=== PATIENT | female | born 1980 | race African-American/Black ===

== ENCOUNTER 2016-05-29 22:42 | Emergency (ER) | payer SELFPAY ==
[~2016-05-29] VITALS: Ht 175.3 cm; Wt 56.7 kg
[~2016-05-29 22:42] MED LIST: IBUP-1610 PO
--- NOTE | 2016-05-29 22:48 | NUR ---
PT WALKED INTO ER REQUESTING FOR TEST AND C/O ABDOMINAL BLOATING... PT IS ALERT, ORIENTED X 4, NO RESP DISTRESS NOTED OR REPORTED UPON ASSESSMENT... MD AT BEDSIDE...
[2016-05-29 23:40] LABS: *BILIRUBIN,URIN NEGATIVE (NEGATIVE); *BLOOD, URINE Trace-intact (NEGATIVE); *CLARITY,URINE CLOUDY (CLEAR); *COLOR,URINE LIGHT YELLOW (YELLOW); *KETONES,URINE NEGATIVE (NEGATIVE); *PROTEIN,URINE NEGATIVE (NEGATIVE); LEUKOCYTE ESTERASE ,URINE 1+ (NEGATIVE); NITRITE, URINE NEGATIVE (NEGATIVE); PH,URINE 7.5 (5.0-8.0); UGLUCOSE NEGATIVE (NEGATIVE)
[2016-05-29 23:45] LABS: RBC,URINE 0-3 /HPF (0-3)
[2016-05-29 23:46] LABS: *URINE HCG, QUAL NEGATIVE (NEGATIVE); BACTERIA,URINE MODERATE /HPF (NONE SEEN); SQUAMOUS EPITHELIAL CELL,UR MANY /HPF (NONE SEEN); URINE AMORPHOUS URATE MANY /HPF
--- NOTE | 2016-05-30 00:37 | NUR ---
Patient discharged to home in stable conditon. Written and verbal after care instructions given. Patient verbalizes understanding of instructions. pt walked out of ER unassisted with belongings at side...
[2016-05-30 00:38] VITALS: BP 131/94
[2016-06-01 09:32] LABS: *TRIC.VAG. NAA Negative (Negative)
[2016-06-01 18:06] LABS: *CHLAMYDIA NAA Negative (Negative); *GC NAA Negative (Negative)
== END 2016-05-30 00:40 | disposition home or self-care (01) ==
LOC: ER 22:42
DX: N91.2 Amenorrhea, unspecified (principal); F10.20 Alcohol dependence, uncomplicated
CPT/HCPCS: 81001; 84703; 87491; 99284; A4663

== ENCOUNTER 2016-06-16 01:44 | Emergency (ER) | payer SELFPAY ==
[~2016-06-16] VITALS: Ht 175.3 cm; Wt 56.7 kg
[2016-06-16] MEDS ORDERED: CEFTRIAXONE 1 G VIAL IM ONE (03:30)
[2016-06-16 03:34] LABS: *BILIRUBIN,URIN NEGATIVE (NEGATIVE); *BLOOD, URINE 1+ (NEGATIVE); *CLARITY,URINE SLIGHTLY CLOUDY (CLEAR); *COLOR,URINE YELLOW (YELLOW); *KETONES,URINE NEGATIVE (NEGATIVE); *PROTEIN,URINE TRACE (NEGATIVE); LEUKOCYTE ESTERASE ,URINE NEGATIVE (NEGATIVE); NITRITE, URINE NEGATIVE (NEGATIVE); UGLUCOSE NEGATIVE (NEGATIVE)
[2016-06-16] MEDS ORDERED: LIDOCAINE HCL 1% 20 ML VIAL ONE (03:40)
[2016-06-16] MEDS ORDERED: CEFTRIAXONE 1 G VIAL ONE (03:40)
[2016-06-16 03:43] LABS: BACTERIA,URINE MANY /HPF (NONE SEEN); SQUAMOUS EPITHELIAL CELL,UR MANY /HPF (NONE SEEN)
[2016-06-16 03:44] LABS: MUCUS,URINE MANY /LPF (0-FEW)
[2016-06-16 03:45] LABS: *URINE HCG, QUAL NEGATIVE (NEGATIVE)
--- NOTE | 2016-06-16 04:03 | NUR ---
Patient discharged to home in stable conditon. Written and verbal after care instructions given. Patient verbalizes understanding of instructions.
== END 2016-06-16 04:04 | disposition home or self-care (01) ==
LOC: ER 01:46
DX: N39.0 Urinary tract infection, site not specified (principal); F10.20 Alcohol dependence, uncomplicated
CPT/HCPCS: 81001; 84703; 87086; 96372; 99284; A4663; J0696; J3490

== ENCOUNTER 2016-10-25 00:22 | Emergency (ER) | payer SELFPAY ==
[~2016-10-25] VITALS: Ht 175.3 cm; Wt 61.2 kg
--- NOTE | 2016-10-25 01:10 | NUR ---
Ambulated to BR to void then to room 2B. Patient AAO, c/o pain and discomfort to lower abdominal area scale 7/10.
[2016-10-25 01:29] LABS: *BILIRUBIN,URIN NEGATIVE (NEGATIVE); *BLOOD, URINE NEGATIVE (NEGATIVE); *CLARITY,URINE CLEAR (CLEAR); *COLOR,URINE YELLOW (YELLOW); *KETONES,URINE NEGATIVE (NEGATIVE); *PROTEIN,URINE NEGATIVE (NEGATIVE); LEUKOCYTE ESTERASE ,URINE NEGATIVE (NEGATIVE); NITRITE, URINE NEGATIVE (NEGATIVE); PH,URINE 6.5 (5.0-8.0); UGLUCOSE NEGATIVE (NEGATIVE)
[2016-10-25 01:32] LABS: BACTERIA,URINE NONE SEEN /HPF (NONE SEEN); RBC,URINE 0-3 /HPF (0-3); SQUAMOUS EPITHELIAL CELL,UR NONE SEEN /HPF (NONE SEEN); WBC,URINE 0-3 /HPF (0-3)
[2016-10-25 01:35] LABS: *URINE HCG, QUAL NEGATIVE (NEGATIVE)
--- NOTE | 2016-10-25 01:50 | NUR ---
Seen and evaluated by Dr. Rosas.
[2016-10-25] MEDS ORDERED: CEFTRIAXONE 500 MG VIAL IM ONE (02:30)
--- NOTE | 2016-10-25 02:36 | NUR ---
Patient discharged to home in stable conditon. Written and verbal after care instructions given. Patient verbalizes understanding of instructions.
[2016-10-25] MEDS ORDERED: CEFTRIAXONE 500 MG VIAL ONE (02:41)
[2016-10-25] MEDS ORDERED: LIDOCAINE HCL 1% 20 ML VIAL ONE (02:41)
[2016-10-27 07:06] LABS: *GC NAA Negative (Negative); *TRIC.VAG. NAA Negative (Negative)
== END 2016-10-25 02:37 | disposition home or self-care (01) ==
LOC: ER 00:25
DX: N39.0 Urinary tract infection, site not specified (principal)
CPT/HCPCS: 84703; 87086; 87491; A4663; J0696; J3490

== ENCOUNTER 2016-11-04 23:15 | Emergency (ER) | payer SELFPAY ==
--- NOTE | 2016-11-04 23:45 | NUR ---
CALLED FOR PT NO ANSWER LWBT
== END 2016-11-04 23:45 | disposition left against medical advice (07) ==
LOC: ER 23:18
DX: R10.9 Unspecified abdominal pain (principal); Z53.21 Procedure and treatment not carried out due to patient leaving prior to being seen by health care provider

== ENCOUNTER 2016-11-24 02:23 | Emergency (ER) | payer SELFPAY ==
[~2016-11-24] VITALS: Ht 175.3 cm; Wt 56.7 kg
--- NOTE | 2016-11-24 04:25 | NUR ---
Patient discharged to home in stable conditon. Written and verbal after care instructions given. Patient verbalizes understanding of instructions.
== END 2016-11-24 04:27 | disposition home or self-care (01) ==
LOC: ER 02:28
DX: S93.601A Unspecified sprain of right foot, initial encounter (principal); W20.8XXA Other cause of strike by thrown, projected or falling object, initial encounter; Y93.89 Activity, other specified; Y92.9 Unspecified place or not applicable; Y99.9 Unspecified external cause status
CPT/HCPCS: 73630; A4663

== ENCOUNTER 2016-11-26 00:56 | Emergency (ER) | payer SELFPAY ==
[~2016-11-26] VITALS: Ht 175.3 cm; Wt 56.7 kg
--- NOTE | 2016-11-26 01:57 | NUR ---
Pt is received from the off going nurse with report off nausea, feeling funny in the lower Abd but want to be check for and prossible STD. Her care continue as awaits lab results.
[2016-11-26 03:21] LABS: *BILIRUBIN,URIN NEGATIVE (NEGATIVE); *BLOOD, URINE 1+ (NEGATIVE); *COLOR,URINE YELLOW (YELLOW); *KETONES,URINE NEGATIVE (NEGATIVE); *PROTEIN,URINE 1+ (NEGATIVE); *UROBILINOGEN,URINE 0.2 E.U./dl (NORMAL); LEUKOCYTE ESTERASE ,URINE TRACE (NEGATIVE); NITRITE, URINE NEGATIVE (NEGATIVE); PH,URINE 5.5 (5.0-8.0); UGLUCOSE NEGATIVE (NEGATIVE)
--- NOTE | 2016-11-26 03:38 | NUR ---
Pt remain alert, responsive with no s/s off distress. Her care continue while monitor.
[2016-11-26 03:59] LABS: *CLARITY,URINE HAZY (CLEAR)
[2016-11-26 04:02] LABS: BACTERIA,URINE MODERATE /HPF (NONE SEEN); MUCUS,URINE MANY /LPF (0-FEW); SQUAMOUS EPITHELIAL CELL,UR MODERATE /HPF (NONE SEEN)
--- NOTE | 2016-11-26 05:04 | NUR ---
Pt remain alert, responsive as she is assisted as needed as her care continue while awaits test results.
[2016-11-26 05:27] VITALS: BP 102/72
--- NOTE | 2016-11-26 05:33 | NUR ---
Patient discharged to home in stable conditon. Written and verbal after care instructions given. Patient verbalizes understanding of instructions. All belongings with patient. Ambulated from ER with stable gait. patient will be driven home by [facility].
== END 2016-11-26 05:37 | disposition home or self-care (01) ==
LOC: ER 00:58
DX: N39.0 Urinary tract infection, site not specified (principal)
CPT/HCPCS: A4663; J0696

== ENCOUNTER 2016-12-24 02:10 | Emergency (ER) | payer SELFPAY ==
[~2016-12-24] VITALS: Ht 175.3 cm; Wt 56.7 kg
[2016-12-24 03:37] LABS: *BILIRUBIN,URIN NEGATIVE (NEGATIVE); *BLOOD, URINE NEGATIVE (NEGATIVE); *CLARITY,URINE CLEAR (CLEAR); *COLOR,URINE YELLOW (YELLOW); *KETONES,URINE NEGATIVE (NEGATIVE); *PROTEIN,URINE NEGATIVE (NEGATIVE); *UROBILINOGEN,URINE 0.2 E.U./dl (NORMAL); LEUKOCYTE ESTERASE ,URINE 1+ (NEGATIVE); NITRITE, URINE NEGATIVE (NEGATIVE); UGLUCOSE NEGATIVE (NEGATIVE)
[2016-12-24 03:53] LABS: *URINE HCG, QUAL NEGATIVE (NEGATIVE)
[2016-12-24 03:58] LABS: BACTERIA,URINE FEW /HPF (NONE SEEN); SQUAMOUS EPITHELIAL CELL,UR FEW /HPF (NONE SEEN)
[2016-12-24] MEDS ORDERED: CEFTRIAXONE 500 MG VIAL IM ONE (04:15)
[2016-12-24] MEDS ORDERED: AZITHROMYCIN 250 MG TABLET PO ONE (04:15)
[2016-12-24] MEDS ORDERED: AZITHROMYCIN 250 MG TABLET ONE (04:36)
[2016-12-24] MEDS ORDERED: LIDOCAINE HCL 1% 20 ML VIAL ONE (04:36)
[2016-12-24] MEDS ORDERED: CEFTRIAXONE 500 MG VIAL ONE (04:36)
[2016-12-24 04:58] VITALS: BP 108/74
--- NOTE | 2016-12-24 04:58 | NUR ---
Patient discharged to home in stable conditon. Written and verbal after care instructions given. Patient verbalizes understanding of instructions.
[2016-12-26 18:08] LABS: *TRIC.VAG. NAA Negative (Negative)
[2016-12-27 09:28] LABS: *GC NAA Negative (Negative)
== END 2016-12-24 05:00 | disposition home or self-care (01) ==
LOC: ER 02:12
DX: Z20.2 Contact with and (suspected) exposure to infections with a predominantly sexual mode of transmission (principal); N30.00 Acute cystitis without hematuria; N83.209 Unspecified ovarian cyst, unspecified side
CPT/HCPCS: 81001; 84703; 87086; 87491; 96372; 99284; A4663; J0696; J3490; Q0144

== ENCOUNTER 2017-01-24 18:42 | Emergency (ER) | payer SELFPAY ==
[~2017-01-24] VITALS: Ht 175.3 cm; Wt 56.7 kg
--- NOTE | 2017-01-24 19:42 | NUR ---
Patient discharged to home in stable conditon. Written and verbal after care instructions given. Patient verbalizes understanding of instructions.
[2017-01-24] MEDS ORDERED: predniSONE 20 MG TABLET PO ONE (19:45)
[2017-01-24] MEDS ORDERED: AMOXICILLIN-CLAVUL 875-125MG TABLET PO ONE (19:45)
[2017-01-24] MEDS ORDERED: AMOXICILLIN-CLAVUL 875-125MG TABLET ONE (19:52)
[2017-01-24] MEDS ORDERED: predniSONE 20 MG TABLET ONE (19:52)
== END 2017-01-24 19:43 | disposition home or self-care (01) ==
LOC: ER 18:42
DX: J01.90 Acute sinusitis, unspecified (principal); N83.209 Unspecified ovarian cyst, unspecified side
CPT/HCPCS: 99283; A4663; J7512

== ENCOUNTER 2017-02-19 23:15 | Emergency (ER) | payer SELFPAY ==
[~2017-02-19] VITALS: Ht 175.3 cm; Wt 56.7 kg
[~2017-02-19 23:15] MED LIST changes: -IBUP-1610 PO; +IBUP-1627 PO
--- NOTE | 2017-02-19 23:49 | NUR ---
Patient discharged to home in stable conditon. Written and verbal after care instructions given. Patient verbalizes understanding of instructions.
== END 2017-02-19 23:51 | disposition home or self-care (01) ==
LOC: ER 23:17
DX: J02.9 Acute pharyngitis, unspecified (principal); J20.9 Acute bronchitis, unspecified
CPT/HCPCS: 99283; A4663

== ENCOUNTER 2017-02-21 23:39 | Emergency (ER) | payer SELFPAY ==
[~2017-02-21] VITALS: Ht 175.3 cm; Wt 56.7 kg
--- NOTE | 2017-02-22 03:16 | NUR ---
Pt is received alert, responsive as she came in c/o off Earache and Sore Throat. Her care continue as awaits MD orders.
--- NOTE | 2017-02-22 03:55 | NUR ---
Pt remain alert, remain alert, responsive as she is been medicated with 200mg po off Tessalon Perles but refused Troradol 30mg IM as is arron awared. Pt care continue.
[2017-02-22] MEDS: BENZONATATE 100 MG CAPSULE PO ONE (04:05)
[2017-02-22] MEDS: KETOROLAC TROMETHAMINE 30 MG INJ IM ONE (04:05)
--- NOTE | 2017-02-22 04:07 | NUR ---
Pt is noted alert, responsive as she is been discharged to home with discharged instructions with Perscriptions given as she is stable .
[2017-02-22] MEDS ORDERED: KETOROLAC TROMETHAMINE 30 MG INJ ONE (04:11)
[2017-02-22] MEDS ORDERED: BENZONATATE 100 MG CAPSULE ONE (04:11)
[2017-02-22 04:13] VITALS: BP 90/52
== END 2017-02-22 04:16 | disposition home or self-care (01) ==
LOC: ER 23:41
DX: B34.9 Viral infection, unspecified (principal)
CPT/HCPCS: 99283; A4663 ×2; J1885

== ENCOUNTER 2017-03-05 23:10 | Emergency (ER) | payer SELFPAY ==
[~2017-03-05] VITALS: Ht 175.3 cm; Wt 56.7 kg
[2017-03-05] MEDS ORDERED: AZITHROMYCIN 250 MG TABLET PO ONE (23:45)
[2017-03-05] MEDS ORDERED: CEFTRIAXONE 500 MG VIAL IM ONE (23:45)
[2017-03-05] MEDS ORDERED: ONDANSETRON ODT 4 MG TAB.RAPDIS SL ONE (23:45)
[2017-03-05 23:48] LABS: *URINE HCG, QUAL NEGATIVE (NEGATIVE)
[2017-03-05 23:49] LABS: *BILIRUBIN,URIN NEGATIVE (NEGATIVE); *BLOOD, URINE 1+ (NEGATIVE); *CLARITY,URINE CLEAR (CLEAR); *COLOR,URINE YELLOW (YELLOW); *KETONES,URINE NEGATIVE (NEGATIVE); *PROTEIN,URINE NEGATIVE (NEGATIVE); LEUKOCYTE ESTERASE ,URINE NEGATIVE (NEGATIVE); NITRITE, URINE NEGATIVE (NEGATIVE); PH,URINE 5.5 (5.0-8.0); UGLUCOSE NEGATIVE (NEGATIVE)
--- NOTE | 2017-03-05 23:54 | NUR ---
Patient discharged to home in stable conditon. Written and verbal after care instructions given. Patient verbalizes understanding of instructions. Ambulated from ER with stable gait. All belongings with patient.
[2017-03-05 23:55] VITALS: BP 110/69
[2017-03-05 23:57] LABS: BACTERIA,URINE NONE SEEN /HPF (NONE SEEN); SQUAMOUS EPITHELIAL CELL,UR MODERATE /HPF (NONE SEEN); WBC,URINE 0-3 /HPF (0-3)
[2017-03-05] MEDS ORDERED: CEFAZOLIN 1 G VIAL ONE (23:59)
[2017-03-05] MEDS ORDERED: AZITHROMYCIN 250 MG TABLET ONE (23:59)
[2017-03-05] MEDS ORDERED: ONDANSETRON ODT 4 MG TAB.RAPDIS ONE (23:59)
[2017-03-08 08:06] LABS: *GC NAA Negative (Negative); *TRIC.VAG. NAA Negative (Negative)
== END 2017-03-05 23:55 | disposition home or self-care (01) ==
LOC: ER 23:11
DX: N39.0 Urinary tract infection, site not specified (principal); B96.89 Other specified bacterial agents as the cause of diseases classified elsewhere
CPT/HCPCS: 84703; 87491; A4663; J0690; Q0144; Q0162

== ENCOUNTER 2017-04-12 22:23 | Emergency (ER) | payer SELFPAY ==
[~2017-04-12] VITALS: Ht 175.3 cm; Wt 56.7 kg
[2017-04-12] MEDS: CEFTRIAXONE 500 MG VIAL IM ONE (23:10)
[2017-04-12] MEDS ORDERED: CEFTRIAXONE 500 MG VIAL ONE (23:17)
--- NOTE | 2017-04-12 23:19 | NUR ---
Patient discharged to home in stable conditon. Written and verbal after care instructions given. Patient verbalizes understanding of instructions.
[2017-04-12] MEDS ORDERED: LIDOCAINE HCL 1% 20 ML VIAL ONE (23:20)
[2017-04-12 23:21] VITALS: BP 105/75
== END 2017-04-12 23:18 | disposition home or self-care (01) ==
LOC: ER 22:25
DX: O98.311 Other infections with a predominantly sexual mode of transmission complicating pregnancy, first trimester (principal); A64 Unspecified sexually transmitted disease; N83.209 Unspecified ovarian cyst, unspecified side
CPT/HCPCS: A4663; J0696; J3490

== ENCOUNTER 2017-04-30 10:14 | Emergency (ER) | payer SELFPAY ==
[~2017-04-30] VITALS: Ht 175.3 cm; Wt 56.7 kg
[2017-04-30 11:07] LABS: *BILIRUBIN,URIN NEGATIVE (NEGATIVE); *BLOOD, URINE 1+ (NEGATIVE); *CLARITY,URINE CLEAR (CLEAR); *COLOR,URINE YELLOW (YELLOW); *KETONES,URINE NEGATIVE (NEGATIVE); *PROTEIN,URINE TRACE (NEGATIVE); *UROBILINOGEN,URINE 0.2 E.U./dl (NORMAL); LEUKOCYTE ESTERASE ,URINE NEGATIVE (NEGATIVE); NITRITE, URINE NEGATIVE (NEGATIVE); UGLUCOSE NEGATIVE (NEGATIVE)
[2017-04-30] MEDS ORDERED: CEFTRIAXONE 1 G in IV DEXTROSE 5% 50 ML IV ONE (11:15)
[2017-04-30] MEDS ORDERED: AZITHROMYCIN 250 MG TABLET PO ONE (11:15)
[2017-04-30] MEDS ORDERED: KETOROLAC TROMETHAMINE 15 MG INJ IV ONE (11:15)
[2017-04-30] MEDS ORDERED: ONDANSETRON 4 MG/2 ML VIAL IV ONE (11:15)
[2017-04-30 11:17] LABS: BACTERIA,URINE FEW /HPF (NONE SEEN); MUCUS,URINE MODERATE /LPF (0-FEW); SQUAMOUS EPITHELIAL CELL,UR MODERATE /HPF (NONE SEEN); WBC,URINE 0-3 /HPF (0-3)
[2017-04-30 11:18] LABS: *URINE HCG, QUAL POSITIVE (NEGATIVE)
--- NOTE | 2017-04-30 11:20 | NUR ---
Pt refused HL, aware.
[2017-04-30] MEDS ORDERED: AZITHROMYCIN 250 MG TABLET ONE (11:28)
[2017-04-30] MEDS ORDERED: ONDANSETRON ODT 4 MG TAB.RAPDIS ONE (11:28)
[2017-04-30] MEDS ORDERED: CEFTRIAXONE 500 MG VIAL ONE (11:29)
[2017-04-30] MEDS ORDERED: LIDOCAINE HCL 1% 20 ML VIAL ONE (11:29)
[2017-04-30] MEDS ORDERED: ONDANSETRON ODT 4 MG TAB.RAPDIS SL ONE (11:30)
[2017-04-30] MEDS ORDERED: CEFTRIAXONE 500 MG VIAL IM ONE (11:30)
[2017-04-30 11:36] LABS: BASOPHILS % (AUTO) 0.4 % (0.0-2.0); EOSINOPHILS % (AUTO) 0.6 % (0.0-7.0); HEMATOCRIT 39.5 % (31.2-41.9); HEMOGLOBIN 13.1 g/dL (10.9-14.3); LYMPHOCYTES # (AUTO) 1.9 K/uL (20.0-40.0); LYMPHOCYTES % (AUTO) 38.4 % (20.5-51.5); MEAN CORPUSCULAR HGB CONC 33 g/dL (32.3-35.6); MEAN CORPUSCULAR VOLUME 90.5 fL (75.5-95.3); MONOCYTES # (AUTO) 0.3 K/uL (2.0-10.0); MONOCYTES % (AUTO) 6.6 % (0.0-11.0); NEUTROPHILS # (AUTO) 2.6 K/uL (1.8-8.9); PLATELET COUNT (AUTO) 210 K/uL (179-408); RED BLOOD CELL COUNT(AUTO) 4.36 MIL/uL (3.63-4.92); WHITE BLOOD COUNT (AUTO) 4.8 K/uL (3.8-11.8)
[2017-04-30 11:45] LABS: CREATININE 0.7 mg/dL (0.6-1.3)
[2017-04-30 12:03] LABS: BILIRUBIN,DIRECT 0.2 mg/dL (0.0-0.2); BILIRUBIN,TOTAL 1.3 mg/dL (0.2-1.0); TOTAL PROTEIN, SERUM 7.6 g/dL (6.4-8.2)
--- NOTE | 2017-04-30 13:22 | NUR ---
Patient is resting comfortably in bed with eyes closed, NAD noted.
--- NOTE | 2017-04-30 13:35 | NUR ---
DR SNYDER AT BEDSIDE MADE PATIENT AWARE OF TEST RESULTS. WILL BE DC HOME.
--- NOTE | 2017-04-30 13:39 | NUR ---
Patient discharged to home in stable conditon. Written and verbal after care instructions given. Patient verbalizes understanding of instructions.
[2017-04-30 13:43] VITALS: BP 115/71
== END 2017-04-30 13:45 | disposition home or self-care (01) ==
LOC: ER 10:14
DX: O03.9 Complete or unspecified spontaneous abortion without complication (principal); Z79.1 Long term (current) use of non-steroidal anti-inflammatories (NSAID); Z3A.00 Weeks of gestation of pregnancy not specified
CPT/HCPCS: 36415; 76856; 80048; 80076; 81001; 83690; 84702; 84703; 85025; 86850; 86900; 86901; 96372; 99285; A4663; J0696; J3490 ×2; Q0144; Q0162

== ENCOUNTER 2017-05-02 12:34 | Emergency (ER) | payer SELFPAY ==
[~2017-05-02] VITALS: Ht 175.3 cm; Wt 56.7 kg
--- NOTE | 2017-05-02 13:50 | NUR ---
PATIENT WAS SEEN BY MD FOR LABS. DC AND FOLLOW UP INSRUCTIONS GIVEN AND EXPLAINED TO PATIENT.
== END 2017-05-02 14:30 | disposition home or self-care (01) ==
LOC: ER 12:34
DX: O03.9 Complete or unspecified spontaneous abortion without complication (principal); Z79.1 Long term (current) use of non-steroidal anti-inflammatories (NSAID); Z3A.00 Weeks of gestation of pregnancy not specified
CPT/HCPCS: 36415; 84702; 99283; A4663

== ENCOUNTER 2017-05-12 06:47 | Emergency (ER) | payer SELFPAY ==
[~2017-05-12] VITALS: Ht 172.7 cm; Wt 54.4 kg
--- NOTE | 2017-05-12 07:23 | NUR ---
URINE SENT,BLOOD DRAWN, PT AWAITING [facility]ANS[facility].
[2017-05-12 07:33] LABS: *BLOOD, URINE NEGATIVE (NEGATIVE); *CLARITY,URINE CLEAR (CLEAR); *COLOR,URINE YELLOW (YELLOW); *KETONES,URINE NEGATIVE (NEGATIVE); *PROTEIN,URINE TRACE (NEGATIVE); LEUKOCYTE ESTERASE ,URINE TRACE (NEGATIVE); NITRITE, URINE NEGATIVE (NEGATIVE); PH,URINE 5.5 (5.0-8.0); UGLUCOSE NEGATIVE (NEGATIVE)
[2017-05-12 07:35] LABS: BASOPHILS % (AUTO) 0.3 % (0.0-2.0); EOSINOPHILS % (AUTO) 0.6 % (0.0-7.0); HEMATOCRIT 43.2 % (31.2-41.9); HEMOGLOBIN 14.4 g/dL (10.9-14.3); LYMPHOCYTES # (AUTO) 2.4 K/uL (20.0-40.0); LYMPHOCYTES % (AUTO) 41.3 % (20.5-51.5); MEAN CORPUSCULAR HGB CONC 33 g/dL (32.3-35.6); MEAN CORPUSCULAR VOLUME 90.1 fL (75.5-95.3); MONOCYTES # (AUTO) 0.3 K/uL (2.0-10.0); MONOCYTES % (AUTO) 5.4 % (0.0-11.0); NEUTROPHILS # (AUTO) 3.1 K/uL (1.8-8.9); NEUTROPHILS % (AUTO) 52.4 % (38.5-71.5); PLATELET COUNT (AUTO) 232 K/uL (179-408); WHITE BLOOD COUNT (AUTO) 5.8 K/uL (3.8-11.8)
[2017-05-12 07:36] LABS: *BILIRUBIN,URIN 1+ (NEGATIVE)
[2017-05-12 07:37] LABS: *URINE HCG, QUAL NEGATIVE (NEGATIVE)
--- NOTE | 2017-05-12 07:39 | NUR ---
FRANS[facility] [place] AT BEDSIDE
[2017-05-12 07:40] LABS: CREATININE 0.8 mg/dL (0.6-1.3); POTASSIUM 3.4 mmol/L (3.5-5.1)
[2017-05-12 07:46] LABS: BILIRUBIN,TOTAL 1.2 mg/dL (0.2-1.0); TOTAL PROTEIN, SERUM 7.9 g/dL (6.4-8.2)
[2017-05-12 07:52] LABS: RBC,URINE 0-3 /HPF (0-3)
[2017-05-12 07:53] LABS: BACTERIA,URINE FEW /HPF (NONE SEEN); SQUAMOUS EPITHELIAL CELL,UR MANY /HPF (NONE SEEN)
[2017-05-12] MEDS ORDERED: POTASSIUM CHLORIDE 20 MEQ TAB.PRT.SR ONE (08:45)
[2017-05-12] MEDS ORDERED: POTASSIUM CHLORIDE 20 MEQ TAB.PRT.SR PO ONE (08:45)
--- NOTE | 2017-05-12 08:54 | NUR ---
MSE COMPLETED, ALL MEDS ADMIN, PT D/C'D HOME, ACI/RX X1 GIVEN. PT AMBULATED W/O DIFF, TOOK ALL BELONGINGS.
[2017-05-12 09:05] VITALS: BP 106/62
== END 2017-05-12 08:47 | disposition home or self-care (01) ==
LOC: ER 06:47
DX: N39.0 Urinary tract infection, site not specified (principal); E87.6 Hypokalemia; Z79.1 Long term (current) use of non-steroidal anti-inflammatories (NSAID)
CPT/HCPCS: 36415; 70030-TC; 84703; 85025; A4663

== ENCOUNTER 2017-07-11 23:04 | Emergency (ER) | payer SELFPAY ==
--- NOTE | 2017-07-11 23:32 | NUR ---
Patient came up to sales ledger clerk's window and states " I don't want to be seen anymore. I come back in the morning if I need to."
--- NOTE | 2017-07-11 23:33 | NUR ---
Patient left without being seen or triaged
== END 2017-07-11 23:35 | disposition left against medical advice (07) ==
LOC: ER 23:06
DX: Z53.21 Procedure and treatment not carried out due to patient leaving prior to being seen by health care provider (principal)

== ENCOUNTER 2017-07-17 04:50 | Emergency (ER) | payer SELFPAY ==
[~2017-07-17] VITALS: Ht 172.7 cm; Wt 54.4 kg
--- NOTE | 2017-07-17 05:17 | NUR ---
PT C/O DYSURIA, GENERALIZED MALAISE, ABD PAIN, AND COUGH FOR THE LAST FEW DAYS, AND STATES SHE THINKS SHE HAS A FEVER. VSS UPON ARRIVAL, AND PT IS AFEBRILE AT THIS TIME.
--- NOTE | 2017-07-17 05:20 | NUR ---
URINE SPECIMEN OBTAINED AND SENT TO LAB.
--- NOTE | 2017-07-17 05:28 | NUR ---
DR KATY BROWN MD AT BEDSIDE FOR MSE.
[2017-07-17 05:37] LABS: *BILIRUBIN,URIN NEGATIVE (NEGATIVE); *BLOOD, URINE Trace-intact (NEGATIVE); *CLARITY,URINE SLIGHTLY CLOUDY (CLEAR); *COLOR,URINE YELLOW (YELLOW); *KETONES,URINE NEGATIVE (NEGATIVE); *PROTEIN,URINE NEGATIVE (NEGATIVE); *UROBILINOGEN,URINE 0.2 E.U./dl (NORMAL); LEUKOCYTE ESTERASE ,URINE TRACE (NEGATIVE); NITRITE, URINE NEGATIVE (NEGATIVE); PH,URINE 5.5 (5.0-8.0); UGLUCOSE NEGATIVE (NEGATIVE)
[2017-07-17 05:47] LABS: *URINE HCG, QUAL NEGATIVE (NEGATIVE); BACTERIA,URINE NONE SEEN /HPF (NONE SEEN); MUCUS,URINE MANY /LPF (0-FEW); SQUAMOUS EPITHELIAL CELL,UR FEW /HPF (NONE SEEN)
--- NOTE | 2017-07-17 05:54 | NUR ---
Patient discharged to home in stable conditon. Written and verbal after care instructions given. Patient verbalizes understanding of instructions. Pt ambulated from ER w/ no noted distress. Pt took all personal belongings.
[2017-07-17 05:56] VITALS: BP 107/74
== END 2017-07-17 05:56 | disposition home or self-care (01) ==
LOC: ER 04:50
DX: N39.0 Urinary tract infection, site not specified (principal); N83.209 Unspecified ovarian cyst, unspecified side
CPT/HCPCS: 81001; 84703; 87086; 99284; A4663

== ENCOUNTER 2017-07-20 09:24 | Emergency (ER) | payer SELFPAY ==
[~2017-07-20] VITALS: Ht 172.7 cm; Wt 54.4 kg
--- NOTE | 2017-07-20 09:40 | NUR ---
Dr Yepez at the bedside.
[2017-07-20 09:53] LABS: *BILIRUBIN,URIN NEGATIVE (NEGATIVE); *BLOOD, URINE NEGATIVE (NEGATIVE); *COLOR,URINE YELLOW (YELLOW); *KETONES,URINE NEGATIVE (NEGATIVE); *PROTEIN,URINE TRACE (NEGATIVE); *UROBILINOGEN,URINE 0.2 E.U./dl (NORMAL); LEUKOCYTE ESTERASE ,URINE 1+ (NEGATIVE); NITRITE, URINE NEGATIVE (NEGATIVE); UGLUCOSE NEGATIVE (NEGATIVE)
[2017-07-20 09:54] LABS: *CLARITY,URINE SLIGHTLY HAZY (CLEAR)
[2017-07-20 10:04] LABS: BACTERIA,URINE FEW /HPF (NONE SEEN); SQUAMOUS EPITHELIAL CELL,UR FEW /HPF (NONE SEEN)
[2017-07-20 10:05] LABS: MUCUS,URINE MANY /LPF (0-FEW)
[2017-07-20] MEDS ORDERED: CIPROFLOXACIN HCL 250 MG TABLET PO ONE (10:15)
--- NOTE | 2017-07-20 10:25 | NUR ---
Patient discharged to home in stable conditon. Written and verbal after care instructions given. Patient verbalizes understanding of instructions.
[2017-07-20 10:26] VITALS: BP 106/67
== END 2017-07-20 10:27 | disposition home or self-care (01) ==
LOC: ER 09:25
DX: N39.0 Urinary tract infection, site not specified (principal); G43.909 Migraine, unspecified, not intractable, without status migrainosus
CPT/HCPCS: A4663

== ENCOUNTER 2017-08-11 09:14 | Emergency (ER) | payer SELFPAY ==
[~2017-08-11] VITALS: Ht 172.7 cm; Wt 54.4 kg
[2017-08-11] MEDS ORDERED: LET TOPICAL SOLUTION 8 ML UDC ONE (09:30)
[2017-08-11] MEDS ORDERED: LET TOPICAL SOLUTION 8 ML UDC TP ONE (09:30)
[2017-08-11] MEDS ORDERED: NEOMY/BACITRA/POLYMYXIN B OINT UD PACKET TP ONE ×2 (09:37→10:00)
[2017-08-11] MEDS ORDERED: CEFTRIAXONE 500 MG VIAL IM ONE (10:00)
[2017-08-11] MEDS ORDERED: CEFTRIAXONE 500 MG VIAL ONE (10:13)
[2017-08-11] MEDS: TDAP DIPH,PERTUSS,TET VAC/PF 0.5 ML DISP.SYRIN IM ONE ×2 (10:14→10:28)
[2017-08-11] MEDS ORDERED: LIDOCAINE HCL 1% 20 ML VIAL ONE (10:14)
[2017-08-11] MEDS ORDERED: TDAP DIPH,PERTUSS,TET VAC/PF 0.5 ML DISP.SYRIN IM ONE (10:25)
--- NOTE | 2017-08-11 10:28 | NUR ---
Patient discharged to home in stable conditon. Written and verbal after care instructions given. Patient verbalizes understanding of instructions.PT WALKS IN STEADY GAIT. NO REACTION TO [facility]EPH[facility].
== END 2017-08-11 10:33 | disposition home or self-care (01) ==
LOC: ER 09:14
DX: S80.812A Abrasion, left lower leg, initial encounter (principal); L08.9 Local infection of the skin and subcutaneous tissue, unspecified; Z79.1 Long term (current) use of non-steroidal anti-inflammatories (NSAID); X58.XXXA Exposure to other specified factors, initial encounter; Y93.89 Activity, other specified; Y92.89 Other specified places as the place of occurrence of the external cause; Y99.8 Other external cause status
CPT/HCPCS: 90471; 90715; 96372; 99284; A4663; J0696; J3490

== ENCOUNTER 2017-08-14 10:50 | Emergency (ER) | payer SELFPAY ==
[~2017-08-14] VITALS: Ht 167.6 cm; Wt 54.4 kg
--- NOTE | 2017-08-14 11:02 | NUR ---
Patient discharged to home in stable conditon & steady gait. Written and verbal after care instructions given to patient by MD himself. Patient verbalizes understanding of instructions.
== END 2017-08-14 11:04 | disposition home or self-care (01) ==
LOC: ER 10:50
DX: S81.812D Laceration without foreign body, left lower leg, subsequent encounter (principal); Z48.02 Encounter for removal of sutures; Z79.1 Long term (current) use of non-steroidal anti-inflammatories (NSAID); W26.8XXD Contact with other sharp object(s), not elsewhere classified, subsequent encounter
CPT/HCPCS: 99281; A4663

== ENCOUNTER 2017-08-19 15:13 | Emergency (ER) | payer SELFPAY ==
--- NOTE | 2017-08-19 15:23 | NUR ---
PT LWBT, STATED SHE FELT BETTER
== END 2017-08-19 15:25 | disposition left against medical advice (07) ==
LOC: ER 15:15
DX: Z53.21 Procedure and treatment not carried out due to patient leaving prior to being seen by health care provider (principal)

== ENCOUNTER 2017-08-21 09:50 | Emergency (ER) | payer SELFPAY ==
[~2017-08-21] VITALS: Ht 167.6 cm; Wt 54.4 kg
--- NOTE | 2017-08-21 10:22 | NUR ---
Patient sen by Dr Rosas for c/o abdominal/suprapubic pain.
[2017-08-21] MEDS ORDERED: AZITHROMYCIN 250 MG TABLET PO ONE (10:30)
[2017-08-21] MEDS ORDERED: CEFTRIAXONE 1 G in IV DEXTROSE 5% 50 ML IV ONE (10:30)
[2017-08-21] MEDS ORDERED: CEFTRIAXONE 1 G VIAL ONE (10:37)
[2017-08-21] MEDS ORDERED: AZITHROMYCIN 250 MG TABLET ONE (10:48)
--- NOTE | 2017-08-21 11:57 | NUR ---
IV DC'd, catheter tip intact, pressure applied, dressing applied. DC, Rx and follow up instructions given and explained to patient who states she understands all instructions.
== END 2017-08-21 12:01 | disposition home or self-care (01) ==
LOC: ER 09:50
DX: K13.0 Diseases of lips (principal); Z79.1 Long term (current) use of non-steroidal anti-inflammatories (NSAID)
CPT/HCPCS: 87086; 96365; 99284; A4663; J0696; J3490; Q0144

== ENCOUNTER 2017-09-22 08:27 | Emergency (ER) | payer SELFPAY ==
[~2017-09-22] VITALS: Ht 167.6 cm; Wt 54.4 kg
--- NOTE | 2017-09-22 09:03 | NUR ---
MSE COMPLETED, ACI/RX X2 GIVEN. PT AMBULATED W/O DIFF/TOOK ALL BELONGINGS.
[2017-09-22 09:06] VITALS: BP 111/77
== END 2017-09-22 09:06 | disposition home or self-care (01) ==
LOC: ER 08:27
DX: L25.9 Unspecified contact dermatitis, unspecified cause (principal); H10.9 Unspecified conjunctivitis; Z79.1 Long term (current) use of non-steroidal anti-inflammatories (NSAID)
CPT/HCPCS: A4663

== ENCOUNTER 2017-09-23 23:17 | Emergency (ER) | payer SELFPAY ==
[~2017-09-23] VITALS: Ht 175.3 cm; Wt 56.7 kg
--- NOTE | 2017-09-24 00:17 | NUR ---
DR ANAIS BROWN MD AT BEDSIDE FOR MSE
[2017-09-24] MEDS ORDERED: SULFACETAMIDE SOD 10% OPHT DR 15 ML BOTTLE ONE (00:28)
--- NOTE | 2017-09-24 00:34 | NUR ---
Patient discharged to home in stable conditon. Written and verbal after care instructions given. Patient verbalizes understanding of instructions. pt ambulated from ER w/ steady gait, no distress noted. Pt took all personal belongings.
[2017-09-24 00:35] VITALS: BP 108/82
== END 2017-09-24 00:36 | disposition home or self-care (01) ==
LOC: ER 23:19
DX: H10.213 Acute toxic conjunctivitis, bilateral (principal); Z79.1 Long term (current) use of non-steroidal anti-inflammatories (NSAID)
CPT/HCPCS: A4663

== ENCOUNTER 2017-10-15 22:46 | Emergency (ER) | payer SELFPAY ==
[~2017-10-15] VITALS: Ht 167.6 cm; Wt 54.4 kg
--- NOTE | 2017-10-15 23:20 | NUR ---
Dr. Flores at bedside for MSE.
[2017-10-15] MEDS ORDERED: CEFTRIAXONE 500 MG VIAL IM ONE (23:30)
[2017-10-15] MEDS ORDERED: AZITHROMYCIN 250 MG TABLET PO ONE (23:30)
[2017-10-15] MEDS ORDERED: AZITHROMYCIN 250 MG TABLET ONE (23:39)
[2017-10-15] MEDS ORDERED: CEFTRIAXONE 1 G VIAL ONE (23:40)
[2017-10-15] MEDS ORDERED: LIDOCAINE 1%-EPI 1:100,000 20 ML VIAL ONE (23:40)
[2017-10-15 23:41] LABS: *BILIRUBIN,URIN NEGATIVE (NEGATIVE); *BLOOD, URINE 2+ (NEGATIVE); *CLARITY,URINE CLEAR (CLEAR); *COLOR,URINE YELLOW (YELLOW); *KETONES,URINE NEGATIVE (NEGATIVE); *PROTEIN,URINE NEGATIVE (NEGATIVE); *UROBILINOGEN,URINE 0.2 E.U./dl (NORMAL); LEUKOCYTE ESTERASE ,URINE 2+ (NEGATIVE); NITRITE, URINE NEGATIVE (NEGATIVE); PH,URINE 5.5 (5.0-8.0); UGLUCOSE TRACE (NEGATIVE)
[2017-10-15 23:50] LABS: *URINE HCG, QUAL NEGATIVE (NEGATIVE); BACTERIA,URINE FEW /HPF (NONE SEEN); SQUAMOUS EPITHELIAL CELL,UR MODERATE /HPF (NONE SEEN)
--- NOTE | 2017-10-16 00:14 | NUR ---
Patient discharged to home in stable conditon. Written and verbal after care instructions given. Patient verbalizes understanding of instructions. Pt ambulated out of ER with steady gait, no acute signs of distress, VSS, all belongings taken.
[2017-10-16 00:18] VITALS: BP 100/65
[2017-10-18 07:06] LABS: *GC NAA Negative (Negative); *TRIC.VAG. NAA Negative (Negative)
== END 2017-10-16 00:19 | disposition home or self-care (01) ==
LOC: ER 22:50
DX: N39.0 Urinary tract infection, site not specified (principal)
CPT/HCPCS: 81001; 84703; 87077; 87086; 87491; 96372; 99284; A4663; J0696; J3490; Q0144

== ENCOUNTER 2017-10-29 01:01 | Emergency (ER) | payer SELFPAY ==
[~2017-10-29] VITALS: Ht 167.6 cm; Wt 54.4 kg
--- NOTE | 2017-10-29 01:30 | NUR ---
Patient discharged to home in stable conditon. Written and verbal after care instructions given. Patient verbalizes understanding of instructions.
[2017-10-29 01:31] VITALS: BP 104/62
== END 2017-10-29 01:32 | disposition home or self-care (01) ==
LOC: ER 01:03
DX: N39.0 Urinary tract infection, site not specified (principal)
CPT/HCPCS: A4663

== ENCOUNTER 2017-12-11 17:08 | Emergency (ER) | payer SELFPAY ==
[~2017-12-11] VITALS: Ht 177.8 cm; Wt 74.8 kg
[2017-12-11] MEDS ORDERED: DEXAMETHASONE SOD PHOSPHATE 4 MG INJ IM ONE (19:15)
[2017-12-11] MEDS ORDERED: CEFTRIAXONE 1 G VIAL IM ONE (19:15)
[2017-12-11] MEDS ORDERED: CEFTRIAXONE 1 G VIAL ONE (19:18)
[2017-12-11] MEDS ORDERED: LIDOCAINE HCL 1% 20 ML VIAL ONE (19:18)
[2017-12-11] MEDS ORDERED: DEXAMETHASONE SOD PHOSPHATE 10 MG INJ ONE (19:18)
--- NOTE | 2017-12-11 19:23 | NUR ---
Patient discharged to home in stable conditon. Written and verbal after care instructions given. Patient verbalizes understanding of instructions. ALL BELONGINGS W/ PT. PT SELF-AMBULATED WITHOUT DIFFICULTY.
[2017-12-11 19:25] VITALS: BP 125/70
== END 2017-12-11 19:28 | disposition home or self-care (01) ==
LOC: ER 17:10
DX: J02.9 Acute pharyngitis, unspecified (principal)
CPT/HCPCS: 96372 ×2; 99284; A4663; J0696; J1100; J3490

== ENCOUNTER 2018-01-01 18:38 | Emergency (ER) | payer SELFPAY ==
[~2018-01-01] VITALS: Ht 175.3 cm; Wt 74.8 kg
--- NOTE | 2018-01-01 19:09 | NUR ---
RECEIVED SHIFT REPORT FROM LUIS PLATT. RECEIVED PT IN BED, VSS. PT PRESENTS W/ MULTIPLE COMPLAINTS: BILATERAL EARACHE, SORE THROAT, MIGRAINE. PT DENIES C/P, SOB, N/V/D, DIZZINESS, HEADACHE.
[2018-01-01] MEDS ORDERED: ONDANSETRON ODT 4 MG TAB.RAPDIS SL ONE (19:30)
[2018-01-01] MEDS ORDERED: ONDANSETRON ODT 4 MG TAB.RAPDIS ONE (19:31)
[2018-01-01 20:07] LABS: *BILIRUBIN,URIN NEGATIVE (NEGATIVE); *BLOOD, URINE Trace-lysed (NEGATIVE); *CLARITY,URINE CLEAR (CLEAR); *COLOR,URINE YELLOW (YELLOW); *KETONES,URINE 2+ (NEGATIVE); *PROTEIN,URINE TRACE (NEGATIVE); *UROBILINOGEN,URINE 0.2 E.U./dl (NORMAL); LEUKOCYTE ESTERASE ,URINE TRACE (NEGATIVE); NITRITE, URINE NEGATIVE (NEGATIVE); UGLUCOSE NEGATIVE (NEGATIVE)
[2018-01-01 20:10] LABS: *URINE HCG, QUAL NEGATIVE (NEGATIVE)
[2018-01-01 20:19] LABS: BACTERIA,URINE RARE /HPF (NONE SEEN); SQUAMOUS EPITHELIAL CELL,UR FEW /HPF (NONE SEEN)
--- NOTE | 2018-01-01 20:57 | NUR ---
Patient discharged to home in stable conditon. Written and verbal after care instructions given. Patient verbalizes understanding of instructions. PT D/C W/ PRECRIPTIONS. ALL BELONGINGS W/ PT. PT SELF-AMBULATED WITHOUT DIFFICULTY.
[2018-01-01 20:58] VITALS: BP 115/70
== END 2018-01-01 20:59 | disposition home or self-care (01) ==
LOC: ER 18:41
DX: B97.89 Other viral agents as the cause of diseases classified elsewhere (principal); H92.02 Otalgia, left ear; R11.0 Nausea; R51 Headache; J02.9 Acute pharyngitis, unspecified
CPT/HCPCS: 36415; 84703; 86403; 87070; A4663; Q0162

== ENCOUNTER 2018-01-06 19:22 | Emergency (ER) | payer SELFPAY ==
--- NOTE | 2018-01-06 20:04 | NUR ---
PATIENT LEFT WITHOUT BEING TRIAGED.
--- NOTE | 2018-01-06 20:05 | NUR ---
PATIENT WAS NOT TRIAGED AND LEFT WITHOUT BEING SEEN.
== END 2018-01-06 19:50 | disposition left against medical advice (07) ==
LOC: ER 19:25
DX: Z53.21 Procedure and treatment not carried out due to patient leaving prior to being seen by health care provider (principal)

== ENCOUNTER 2018-01-07 15:18 | Emergency (ER) | payer SELFPAY ==
[~2018-01-07] VITALS: Ht 175.3 cm; Wt 29.5 kg
--- NOTE | 2018-01-07 15:56 | NUR ---
Patient discharged to home in stable conditon. Written and verbal after care instructions given. Patient verbalizes understanding of instructions.
== END 2018-01-07 15:57 | disposition home or self-care (01) ==
LOC: ER 15:21
DX: J32.9 Chronic sinusitis, unspecified (principal); N39.0 Urinary tract infection, site not specified
CPT/HCPCS: A4663

== ENCOUNTER 2018-01-29 15:54 | Emergency (ER) | payer SELFPAY ==
[~2018-01-29] VITALS: Ht 175.3 cm; Wt 68.0 kg
[2018-01-29] MEDS ORDERED: DEXAMETHASONE SOD PHOSPHATE 4 MG INJ IM ONE (16:15)
[2018-01-29] MEDS ORDERED: PENICILLIN G BENZATHINE 2.4 MMU/4 ML DISP.SYRIN IM ONE ×2 (16:15→16:18)
[2018-01-29] MEDS ORDERED: DEXAMETHASONE SOD PHOSPHATE 10 MG INJ ONE (16:18)
--- NOTE | 2018-01-29 16:28 | NUR ---
MEDS ADMIN. PT D/C'D HOME. ACI GIVEN.
[2018-01-29 16:29] VITALS: BP 111/62
== END 2018-01-29 16:30 | disposition home or self-care (01) ==
LOC: ER 15:56
DX: J02.9 Acute pharyngitis, unspecified (principal); Z79.1 Long term (current) use of non-steroidal anti-inflammatories (NSAID)
CPT/HCPCS: 96372 ×2; 99283; J1100; A4663

== ENCOUNTER 2018-03-04 22:20 | Emergency (ER) | payer SELFPAY ==
[~2018-03-04] VITALS: Ht 175.3 cm; Wt 56.7 kg
--- NOTE | 2018-03-04 22:53 | NUR ---
Pt. ambulated into ED w/ c/o urinary retention, A/Ox4, fina MANZO/CP/PALMER/F/C/N/V/DMD at bedside for MSE, will continue to monitor, Addendum: 03/04/18 at 2255 by BKDAGOBERTO abd. S/R/NT/ND, no blood in urine noted, no pelvic/flank pain reported,
[2018-03-04 22:57] LABS: *BILIRUBIN,URIN NEGATIVE (NEGATIVE); *BLOOD, URINE NEGATIVE (NEGATIVE); *CLARITY,URINE CLEAR (CLEAR); *COLOR,URINE YELLOW (YELLOW); *KETONES,URINE NEGATIVE (NEGATIVE); *PROTEIN,URINE NEGATIVE (NEGATIVE); *UROBILINOGEN,URINE 0.2 E.U./dl (NORMAL); LEUKOCYTE ESTERASE ,URINE NEGATIVE (NEGATIVE); NITRITE, URINE NEGATIVE (NEGATIVE); UGLUCOSE NEGATIVE (NEGATIVE)
[2018-03-04 23:09] LABS: *URINE HCG, QUAL NEGATIVE (NEGATIVE); BACTERIA,URINE MODERATE /HPF (NONE SEEN); SQUAMOUS EPITHELIAL CELL,UR MODERATE /HPF (NONE SEEN)
[2018-03-04] MEDS ORDERED: CEFTRIAXONE 1 G VIAL IM ONE (23:15)
[2018-03-04] MEDS ORDERED: CEFTRIAXONE 1 G VIAL ONE (23:23)
--- NOTE | 2018-03-04 23:34 | NUR ---
Patient discharged to home in stable conditon. Written and verbal after care instructions given. Patient verbalizes understanding of instructions. Pt. d/c w/ prescription per MD orders, d/c papers signed, all belongings w/ pt., left in private vehicle, no acue distress, ambulated out of ED w/ steady gait, no acute distress,
== END 2018-03-04 23:36 | disposition home or self-care (01) ==
LOC: ER 22:21
DX: N39.0 Urinary tract infection, site not specified (principal); Z79.1 Long term (current) use of non-steroidal anti-inflammatories (NSAID)
CPT/HCPCS: 81001; 84703; 96372; 99283; J0696; A4663

== ENCOUNTER 2018-03-09 19:03 | Emergency (ER) | payer SELFPAY ==
[~2018-03-09] VITALS: Ht 175.3 cm; Wt 56.7 kg
[2018-03-09 19:46] LABS: *BILIRUBIN,URIN NEGATIVE (NEGATIVE); *BLOOD, URINE Trace-intact (NEGATIVE); *CLARITY,URINE SLIGHTLY CLOUDY (CLEAR); *COLOR,URINE YELLOW (YELLOW); *KETONES,URINE NEGATIVE (NEGATIVE); *UROBILINOGEN,URINE 0.2 E.U./dl (NORMAL); LEUKOCYTE ESTERASE ,URINE NEGATIVE (NEGATIVE); NITRITE, URINE NEGATIVE (NEGATIVE); UGLUCOSE NEGATIVE (NEGATIVE)
[2018-03-09 19:47] LABS: *URINE HCG, QUAL NEGATIVE (NEGATIVE)
[2018-03-09 19:52] LABS: SQUAMOUS EPITHELIAL CELL,UR MODERATE /HPF (NONE SEEN); WBC,URINE 0-3 /HPF (0-3)
[2018-03-09 19:53] LABS: MUCUS,URINE MANY /LPF (0-FEW); URINE AMORPHOUS PHOSPHATES MODERATE /HPF
--- NOTE | 2018-03-09 20:15 | NUR ---
Patient discharged to home in stable conditon. Written and verbal after care instructions given. Patient verbalizes understanding of instructions.
== END 2018-03-09 20:16 | disposition home or self-care (01) ==
LOC: ER 19:06
DX: R30.0 Dysuria (principal); Z79.1 Long term (current) use of non-steroidal anti-inflammatories (NSAID)
CPT/HCPCS: 84703; A4663

== ENCOUNTER 2018-04-06 22:40 | Emergency (ER) | payer SELFPAY ==
[~2018-04-06] VITALS: Ht 175.3 cm; Wt 56.7 kg
--- NOTE | 2018-04-06 23:05 | NUR ---
Pt ambulated in ER with stable gait with the c/o sore throat x 3 days and lower abdominal pain x 4 days. Pt denies N/V/D.
[2018-04-07] MEDS: CEFTRIAXONE 500 MG VIAL IM ONE (00:36)
[2018-04-07] MEDS: AZITHROMYCIN 250 MG TABLET PO ONE (00:37)
[2018-04-07] MEDS: ONDANSETRON ODT 4 MG TAB.RAPDIS SL ONE (00:37)
--- NOTE | 2018-04-07 01:28 | NUR ---
Spoke with Jose Luis from Lab regarding Strep screen, states that he is working on it at this time.
--- NOTE | 2018-04-07 02:52 | NUR ---
Patient discharged to home in stable conditon. Written and verbal after care instructions given. Patient verbalizes understanding of instructions. Patient ambulated out of ER with stable gait.
[2018-04-07 02:53] VITALS: BP 114/82
== END 2018-04-07 02:54 | disposition home or self-care (01) ==
LOC: ER 22:42
DX: R30.0 Dysuria (principal); J02.9 Acute pharyngitis, unspecified; Z79.1 Long term (current) use of non-steroidal anti-inflammatories (NSAID)
CPT/HCPCS: 36415; 86403; 87070; 87077; A4663; J0696; J3490; Q0144; Q0162

== ENCOUNTER 2018-05-03 21:11 | Emergency (ER) | payer SELFPAY ==
[~2018-05-03] VITALS: Ht 175.3 cm; Wt 56.7 kg
--- NOTE | 2018-05-03 21:38 | NUR ---
Pt provided urine sample, sent to lab.
--- NOTE | 2018-05-03 22:07 | NUR ---
Dr. Villalobos at bedside for MSE.
[2018-05-03 22:08] LABS: *BILIRUBIN,URIN NEGATIVE (NEGATIVE); *BLOOD, URINE NEGATIVE (NEGATIVE); *CLARITY,URINE CLEAR (CLEAR); *COLOR,URINE YELLOW (YELLOW); *KETONES,URINE NEGATIVE (NEGATIVE); LEUKOCYTE ESTERASE ,URINE NEGATIVE (NEGATIVE); NITRITE, URINE NEGATIVE (NEGATIVE); UGLUCOSE NEGATIVE (NEGATIVE)
[2018-05-03 22:11] LABS: *URINE HCG, QUAL NEGATIVE (NEGATIVE)
[2018-05-03] MEDS ORDERED: METRONIDAZOLE 500 MG TABLET PO ONE (22:15)
[2018-05-03] MEDS ORDERED: AZITHROMYCIN 250 MG TABLET PO ONE (22:15)
[2018-05-03] MEDS ORDERED: CEFTRIAXONE 1 G VIAL IM ONE (22:15)
[2018-05-03 22:17] LABS: MUCUS,URINE MANY /LPF (0-FEW)
[2018-05-03] MEDS ORDERED: CEFTRIAXONE 1 G VIAL ONE (22:19)
[2018-05-03] MEDS ORDERED: LIDOCAINE 1%-EPI 1:100,000 20 ML VIAL ONE (22:21)
[2018-05-03] MEDS ORDERED: METRONIDAZOLE 500 MG TABLET ONE (22:21)
[2018-05-03] MEDS ORDERED: AZITHROMYCIN 250 MG TABLET ONE (22:22)
--- NOTE | 2018-05-03 22:30 | NUR ---
Patient discharged to home in stable conditon. Written and verbal after care instructions given. Patient verbalizes understanding of instructions. Patient ambulated out of ER with steady gait, no acute signs of distress, VSS, all belongings taken.
[2018-05-03 22:31] VITALS: BP 107/65
== END 2018-05-03 22:31 | disposition home or self-care (01) ==
LOC: ER 21:14
DX: Z20.2 Contact with and (suspected) exposure to infections with a predominantly sexual mode of transmission (principal); R10.9 Unspecified abdominal pain; Z79.1 Long term (current) use of non-steroidal anti-inflammatories (NSAID)
CPT/HCPCS: 81001; 84703; 96372; 99283; J0696; J3490; A4663; Q0144

== ENCOUNTER 2018-05-25 15:03 | Emergency (ER) | payer SELFPAY ==
[~2018-05-25] VITALS: Ht 175.3 cm; Wt 56.7 kg
--- NOTE | 2018-05-25 15:26 | NUR ---
KEVIN TODD AT BEDSIDE FOR MSE.
--- NOTE | 2018-05-25 15:27 | NUR ---
Juan Carlos fitzgerald in ED - 05/25/18 at 1545 by RUPALI Shiv camejo pt electrical scooter back pt so has the keys in his hand
[2018-05-25] MEDS ORDERED: CEFTRIAXONE 1 G VIAL IM ONE (15:30)
[2018-05-25] MEDS ORDERED: LIDOCAINE HCL 1% 20 ML VIAL ONE (15:44)
[2018-05-25] MEDS ORDERED: CEFTRIAXONE 1 G VIAL ONE (15:44)
--- NOTE | 2018-05-25 15:45 | NUR ---
Patient discharged to home in stable conditon. Written and verbal after care instructions given. Patient verbalizes understanding of instructions. Stressed f/u with pmd.
== END 2018-05-25 15:46 | disposition home or self-care (01) ==
LOC: ER 15:06
DX: J02.9 Acute pharyngitis, unspecified (principal); Z79.1 Long term (current) use of non-steroidal anti-inflammatories (NSAID)
CPT/HCPCS: 96372; 99283; J0696; J3490; A4663

== ENCOUNTER 2018-06-04 15:20 | Emergency (ER) | payer SELFPAY ==
[~2018-06-04] VITALS: Ht 175.3 cm; Wt 56.7 kg
[2018-06-04 16:05] LABS: *BILIRUBIN,URIN NEGATIVE (NEGATIVE); *CLARITY,URINE SLIGHTLY CLOUDY (CLEAR); *COLOR,URINE YELLOW (YELLOW); *KETONES,URINE NEGATIVE (NEGATIVE); *UROBILINOGEN,URINE 0.2 E.U./dl (NORMAL); LEUKOCYTE ESTERASE ,URINE NEGATIVE (NEGATIVE); NITRITE, URINE NEGATIVE (NEGATIVE); PH,URINE 5.5 (5.0-8.0); UGLUCOSE NEGATIVE (NEGATIVE)
[2018-06-04 16:07] LABS: *BLOOD, URINE TRACE (NEGATIVE)
[2018-06-04 16:08] LABS: *URINE HCG, QUAL NEGATIVE (NEGATIVE)
[2018-06-04 16:15] LABS: BACTERIA,URINE MANY /HPF (NONE SEEN); SQUAMOUS EPITHELIAL CELL,UR MODERATE /HPF (NONE SEEN)
--- NOTE | 2018-06-04 16:15 | NUR ---
Juan Carlos fitzgerald in EDM - 06/04/18 at 1626 by BELLA Pt back from CT. Caregiver is at bedside and translating for the pt (Micronesian), pt states she is pain free at this time.
[2018-06-04] MEDS ORDERED: CEFTRIAXONE 1 G VIAL IM ONE (16:45)
--- NOTE | 2018-06-04 16:52 | NUR ---
Patient discharged to home in stable conditon. Written and verbal after care instructions given. Patient verbalizes understanding of instructions.PT WALKS IN STEADY GAIT.
== END 2018-06-04 16:54 | disposition home or self-care (01) ==
LOC: ER 15:23
DX: N39.0 Urinary tract infection, site not specified (principal); Z79.1 Long term (current) use of non-steroidal anti-inflammatories (NSAID)
CPT/HCPCS: 81001; 84703; 96372; 99283; J0696; J3490; A4663

== ENCOUNTER → 2018-06-23 | Emergency (ER) | payer SELFPAY ==
[~2018-06-23] VITALS: Ht 175.3 cm; Wt 56.7 kg
--- NOTE | 2018-06-23 16:30 | NUR ---
Dr. Flores at the bedside for MSE.
--- NOTE | 2018-06-23 16:52 | NUR ---
Patient discharged to home in stable conditon. Written and verbal after care instructions given. Patient verbalizes understanding of instructions.
== END | disposition home or self-care (01) ==
LOC: ER 16:29
DX: L73.1 Pseudofolliculitis barbae (principal); Z79.1 Long term (current) use of non-steroidal anti-inflammatories (NSAID)
CPT/HCPCS: A4663

== ENCOUNTER 2018-06-26 13:38 | Emergency (ER) | payer SELFPAY ==
[~2018-06-26] VITALS: Ht 175.3 cm; Wt 56.7 kg
[2018-06-26] MEDS ORDERED: CEphaleXIN 500 MG CAPSULE PO ONE (14:00)
[2018-06-26] MEDS ORDERED: CEphaleXIN 500 MG CAPSULE ONE (14:00)
--- NOTE | 2018-06-26 14:00 | NUR ---
PT WAS EVALUATED BY DR QUESADA. PT WAS D/C'd TO HOME. D/C INSTRUCTIONS GIVEN TO THE PT.
[2018-06-26 14:04] VITALS: BP 129/75
== END 2018-06-26 14:05 | disposition home or self-care (01) ==
LOC: ER 13:38
DX: L03.114 Cellulitis of left upper limb (principal); Z79.1 Long term (current) use of non-steroidal anti-inflammatories (NSAID)
CPT/HCPCS: A4663

== ENCOUNTER 2018-08-01 21:34 | Emergency (ER) | payer SELFPAY ==
[~2018-08-01] VITALS: Ht 175.3 cm; Wt 56.7 kg
[2018-08-01 22:20] LABS: *BILIRUBIN,URIN NEGATIVE (NEGATIVE); *BLOOD, URINE 1+ (NEGATIVE); *COLOR,URINE YELLOW (YELLOW); *KETONES,URINE 1+ (NEGATIVE); *UROBILINOGEN,URINE 0.2 E.U./dl (NORMAL); LEUKOCYTE ESTERASE ,URINE TRACE (NEGATIVE); NITRITE, URINE NEGATIVE (NEGATIVE); UGLUCOSE NEGATIVE (NEGATIVE)
[2018-08-01 22:26] LABS: *CLARITY,URINE HAZY (CLEAR)
[2018-08-01 22:31] LABS: BACTERIA,URINE MODERATE /HPF (NONE SEEN); MUCUS,URINE MODERATE /LPF (0-FEW); SQUAMOUS EPITHELIAL CELL,UR FEW /HPF (NONE SEEN)
[2018-08-01] MEDS ORDERED: CEFTRIAXONE 1 G VIAL IM ONE (23:00)
[2018-08-01] MEDS ORDERED: CEFTRIAXONE 1 G VIAL ONE (23:11)
[2018-08-01] MEDS ORDERED: LIDOCAINE HCL 1% 20 ML VIAL ONE (23:11)
--- NOTE | 2018-08-01 23:17 | NUR ---
Patient discharged to home in stable conditon. Written and verbal after care instructions given. Patient verbalizes understanding of instructions. WALKED OUT OF ER WITH NO DISTRESS NOTED
[2018-08-01 23:18] VITALS: BP 118/66
== END 2018-08-01 23:19 | disposition home or self-care (01) ==
LOC: ER 21:37
DX: N39.0 Urinary tract infection, site not specified (principal); B96.89 Other specified bacterial agents as the cause of diseases classified elsewhere; Z79.1 Long term (current) use of non-steroidal anti-inflammatories (NSAID)
CPT/HCPCS: 81000; 81001; 87086; 96372; 99283; J0696; J3490; A4663

== ENCOUNTER 2018-08-22 16:11 | Emergency (ER) | payer SELFPAY ==
[~2018-08-22] VITALS: Ht 175.3 cm; Wt 56.7 kg
--- NOTE | 2018-08-22 16:33 | NUR ---
KEVIN TODD AT BEDSIDE FOR MSE.
[2018-08-22] MEDS ORDERED: ONDANSETRON ODT 4 MG TAB.RAPDIS ONE (16:44)
[2018-08-22] MEDS ORDERED: IBUPROFEN 600 MG TABLET ONE (16:44)
[2018-08-22] MEDS ORDERED: ONDANSETRON ODT 4 MG TAB.RAPDIS SL ONE (16:45)
[2018-08-22] MEDS ORDERED: IBUPROFEN 600 MG TABLET PO ONE (16:45)
[2018-08-22] MEDS ORDERED: LORAZEPAM 2 MG/1 ML VIAL ONE (16:52)
--- NOTE | 2018-08-22 17:09 | NUR ---
Patient discharged to home in stable conditon. Written and verbal after care instructions given. Patient verbalizes understanding of instructions. ALL BELONGINGS W/ PT. PT SELF-AMBUALTED W/O DIFFICULTY.
[2018-08-22 17:10] VITALS: BP 106/82
== END 2018-08-22 17:12 | disposition home or self-care (01) ==
LOC: ER 16:11
DX: R51 Headache (principal); R53.83 Other fatigue; R11.0 Nausea; Z79.1 Long term (current) use of non-steroidal anti-inflammatories (NSAID)
CPT/HCPCS: A4663; J2060; Q0162

== ENCOUNTER 2018-09-11 18:54 | Emergency (ER) | payer SELFPAY ==
[~2018-09-11] VITALS: Ht 175.3 cm; Wt 56.7 kg
--- NOTE | 2018-09-11 19:50 | NUR ---
Patient walked into ER c/o abdominal pain x4 days without N/V and diarrhea. Patient also c/o itchy rash on right side x1 week. Patient states rash possible due byron spider bites.No SOB noted.
--- NOTE | 2018-09-11 20:04 | NUR ---
Dr Garcia into eval patient
--- NOTE | 2018-09-11 20:18 | NUR ---
Patient refused to have blood drawn and ct scan stating "I just want anything done now."
--- NOTE | 2018-09-11 20:22 | NUR ---
Patient does not wish to proceed with medical care recommended by Dr. linares ). Patient given information related to possible complications, up to and including , which could occur as a result of leaving the hospital at this time. Patient verbalizes understanding of risks involved due to leaving against medical advice. Patient has signed AMA form.
== END 2018-09-11 20:29 | disposition left against medical advice (07) ==
LOC: ER 18:56
DX: L50.9 Urticaria, unspecified (principal); R10.84 Generalized abdominal pain; Z79.1 Long term (current) use of non-steroidal anti-inflammatories (NSAID)
CPT/HCPCS: A4663

== ENCOUNTER 2018-11-04 19:10 | Emergency (ER) | payer SELFPAY ==
[~2018-11-04] VITALS: Ht 175.3 cm; Wt 56.7 kg
--- NOTE | 2018-11-04 19:20 | NUR ---
Patient ambulated with stable gait. A/Ox4. Patient came for c/o bilateral UE rashes.
[2018-11-04] MEDS ORDERED: HYDROCORTISONE 1% CREAM 30 GM TUBE TP ONE ×2 (19:30→19:39)
[2018-11-04] MEDS ORDERED: diphenhydrAMINE 25 MG CAP PO ONE ×2 (19:30→19:39)
--- NOTE | 2018-11-04 19:48 | NUR ---
Patient discharged to home in stable conditon. Written and verbal after care instructions given. Patient verbalizes understanding of instructions. Patient ambulated with stable gait.
[2018-11-04 20:29] VITALS: BP 110/72
== END 2018-11-04 19:48 | disposition home or self-care (01) ==
LOC: ER 19:10
DX: L25.9 Unspecified contact dermatitis, unspecified cause (principal); L74.0 Miliaria rubra; Z79.1 Long term (current) use of non-steroidal anti-inflammatories (NSAID)
CPT/HCPCS: 99283; Q0163; A4663

== ENCOUNTER 2018-12-12 21:05 | Emergency (ER) | payer SELFPAY ==
[~2018-12-12] VITALS: Ht 175.3 cm; Wt 56.7 kg
--- NOTE | 2018-12-12 21:22 | NUR ---
patient came from home. Chief complaint of urinary discomfort and frequency. Patients denies any pain at this time. patient has provided urine sample and sample has been given to lab.
[2018-12-12 21:32] LABS: *BILIRUBIN,URIN NEGATIVE (NEGATIVE); *BLOOD, URINE 1+ (NEGATIVE); *COLOR,URINE YELLOW (YELLOW); *KETONES,URINE NEGATIVE (NEGATIVE); *UROBILINOGEN,URINE 0.2 E.U./dl (NORMAL); LEUKOCYTE ESTERASE ,URINE TRACE (NEGATIVE); NITRITE, URINE NEGATIVE (NEGATIVE); UGLUCOSE NEGATIVE (NEGATIVE)
[2018-12-12 21:33] LABS: *URINE HCG, QUAL NEGATIVE (NEGATIVE)
[2018-12-12 21:36] LABS: *CLARITY,URINE SLIGHTLY HAZY (CLEAR)
[2018-12-12 21:38] LABS: BACTERIA,URINE MODERATE /HPF (NONE SEEN); MUCUS,URINE MODERATE /LPF (0-FEW); SQUAMOUS EPITHELIAL CELL,UR MODERATE /HPF (NONE SEEN)
[2018-12-12] MEDS ORDERED: DOXYCYCLINE HYCLATE 100 MG TABLET PO ONE (22:00)
[2018-12-12] MEDS ORDERED: NITROFURANTOIN/NITROFURAN MAC 100 MG CAPSULE PO ONE (22:00)
[2018-12-12] MEDS ORDERED: PHENAZOPYRIDINE HCL 100 MG TABLET PO ONE (22:00)
[2018-12-12] MEDS ORDERED: PHENAZOPYRIDINE HCL 100 MG TABLET ONE (22:01)
[2018-12-12] MEDS ORDERED: NITROFURANTOIN/NITROFURAN MAC 100 MG CAPSULE ONE (22:01)
[2018-12-12] MEDS ORDERED: DOXYCYCLINE HYCLATE 100 MG TABLET ONE (22:02)
--- NOTE | 2018-12-12 22:04 | NUR ---
Patient discharged to home in stable conditon. Written and verbal after care instructions given. Patient verbalizes understanding of instructions. Patient self ambulatory with steady gait. Exit care package and personal belongings taken home with the patient at discharge. Patient in stable condition, VSS.
[2018-12-12 22:06] VITALS: BP 107/81
== END 2018-12-12 22:07 | disposition home or self-care (01) ==
LOC: ER 21:08
DX: R30.0 Dysuria (principal); R35.0 Frequency of micturition; Z79.1 Long term (current) use of non-steroidal anti-inflammatories (NSAID)
CPT/HCPCS: 84703; 87086; A4663

== ENCOUNTER 2019-01-18 20:12 | Emergency (ER) | payer SELFPAY ==
[~2019-01-18] VITALS: Ht 175.3 cm; Wt 56.7 kg
[2019-01-18 22:08] LABS: *URINE HCG, QUAL NEGATIVE (NEGATIVE)
[2019-01-18 22:10] LABS: *BILIRUBIN,URIN NEGATIVE (NEGATIVE); *BLOOD, URINE TRACE (NEGATIVE); *CLARITY,URINE CLOUDY (CLEAR); *COLOR,URINE YELLOW (YELLOW); *KETONES,URINE NEGATIVE (NEGATIVE); *UROBILINOGEN,URINE 0.2 E.U./dl (NORMAL); PH,URINE 7.5 (5.0-8.0); UGLUCOSE NEGATIVE (NEGATIVE)
[2019-01-18 22:11] LABS: LEUKOCYTE ESTERASE ,URINE NEGATIVE (NEGATIVE); NITRITE, URINE NEGATIVE (NEGATIVE)
[2019-01-18 22:12] LABS: SQUAMOUS EPITHELIAL CELL,UR MODERATE /HPF (NONE SEEN); URINE AMORPHOUS PHOSPHATES MANY /HPF; WBC,URINE 0-3 /HPF (0-3)
[2019-01-18] MEDS ORDERED: CEFTRIAXONE 1 G VIAL IM ONE (22:45)
[2019-01-18] MEDS ORDERED: CEFTRIAXONE 1 G VIAL ONE (22:48)
--- NOTE | 2019-01-18 22:55 | NUR ---
Patient discharged to home in stable conditon. Written and verbal after care instructions given. Patient verbalizes understanding of instructions. AMBULATORY W/ STABLE GAIT ALL BELONGINGS W/ PT
[2019-01-18 23:21] VITALS: BP 109/80
== END 2019-01-18 23:00 | disposition home or self-care (01) ==
LOC: ER 20:14
DX: N34.2 Other urethritis (principal); Z79.1 Long term (current) use of non-steroidal anti-inflammatories (NSAID)
CPT/HCPCS: 81000; 81001; 84703; 87086; 96372; 99283; J0696; A4663

== ENCOUNTER 2019-02-18 18:33 | Emergency (ER) | payer SELFPAY ==
[~2019-02-18] VITALS: Ht 175.3 cm; Wt 56.7 kg
[2019-02-18] MEDS ORDERED: CEFTRIAXONE 1 G VIAL ONE (19:20)
[2019-02-18] MEDS ORDERED: METRONIDAZOLE 500 MG TABLET ONE (19:20)
[2019-02-18] MEDS ORDERED: LIDOCAINE HCL 1% 20 ML VIAL ONE (19:20)
[2019-02-18] MEDS ORDERED: CEFTRIAXONE 1 G VIAL IM ONE (19:30)
[2019-02-18] MEDS ORDERED: METRONIDAZOLE 500 MG TABLET PO ONE (19:30)
[2019-02-18 19:35] VITALS: BP 112/62
--- NOTE | 2019-02-18 19:35 | NUR ---
Patient discharged to home in stable conditon. Written and verbal after care instructions given. Patient verbalizes understanding of instructions. Patient ambulated with stable gait.
== END 2019-02-18 19:36 | disposition home or self-care (01) ==
LOC: ER 18:34
DX: J32.9 Chronic sinusitis, unspecified (principal); Z79.1 Long term (current) use of non-steroidal anti-inflammatories (NSAID)
CPT/HCPCS: 96372; 99283; J0696; J3490; A4663

== ENCOUNTER 2019-02-27 20:09 | Emergency (ER) | payer SELFPAY | END 2019-02-27 20:20 | disposition left against medical advice (07) | LOC: ER 20:09 | DX: Z53.21 Procedure and treatment not carried out due to patient leaving prior to being seen by health care provider (principal) ==

== ENCOUNTER 2019-02-28 09:41 | Emergency (ER) | payer SELFPAY ==
[~2019-02-28] VITALS: Ht 175.3 cm; Wt 56.7 kg
--- NOTE | 2019-02-28 09:47 | NUR ---
Dr Villalobos at the bedside for MSE.
[2019-02-28] MEDS ORDERED: LIDOCAINE HCL 1% 20 ML VIAL ONE (09:54)
[2019-02-28] MEDS ORDERED: CEFTRIAXONE 1 G VIAL ONE (09:54)
[2019-02-28] MEDS ORDERED: CEFTRIAXONE 1 G VIAL IM ONE (10:00)
[2019-02-28 10:06] VITALS: BP 107/68
--- NOTE | 2019-02-28 10:06 | NUR ---
Patient discharged to home in stable conditon. Written and verbal after care instructions given. Patient verbalizes understanding of instructions.
== END 2019-02-28 10:06 | disposition home or self-care (01) ==
LOC: ER 09:41
DX: J32.9 Chronic sinusitis, unspecified (principal); Z79.1 Long term (current) use of non-steroidal anti-inflammatories (NSAID)
CPT/HCPCS: 96372; 99283; J0696; J3490; A4663

== ENCOUNTER 2019-03-30 01:20 | Emergency (ER) | payer SELFPAY ==
[~2019-03-30] VITALS: Ht 175.3 cm; Wt 56.7 kg
[2019-03-30 02:23] LABS: *URINE HCG, QUAL NEGATIVE (NEGATIVE)
--- NOTE | 2019-03-30 02:45 | NUR ---
Patient discharged to home in stable conditon. Written and verbal after care instructions given. Patient verbalizes understanding of instructions. Ambulated from ER with stable gait. All belongings with patient. VSS
[2019-03-30 02:46] VITALS: BP 131/77
== END 2019-03-30 02:48 | disposition home or self-care (01) ==
LOC: EDBD → ER 01:38
DX: R10.2 Pelvic and perineal pain (principal)
CPT/HCPCS: 76856; 84703; A4663

== ENCOUNTER 2019-05-08 17:18 | Emergency (ER) | payer SELFPAY ==
[~2019-05-08] VITALS: Ht 175.3 cm; Wt 56.7 kg
[2019-05-08 17:39] LABS: *BILIRUBIN,URIN NEGATIVE (NEGATIVE); *BLOOD, URINE 2+ (NEGATIVE); *CLARITY,URINE SLIGHTLY CLOUDY (CLEAR); *COLOR,URINE YELLOW (YELLOW); *KETONES,URINE NEGATIVE (NEGATIVE); *URINE HCG, QUAL NEGATIVE (NEGATIVE); *UROBILINOGEN,URINE 0.2 E.U./dl (NORMAL); LEUKOCYTE ESTERASE ,URINE NEGATIVE (NEGATIVE); NITRITE, URINE NEGATIVE (NEGATIVE); PH,URINE 5.5 (5.0-8.0); UGLUCOSE NEGATIVE (NEGATIVE)
[2019-05-08 17:45] LABS: BACTERIA,URINE MODERATE /HPF (NONE SEEN); MUCUS,URINE MODERATE /LPF (0-FEW); SQUAMOUS EPITHELIAL CELL,UR MANY /HPF (NONE SEEN); WBC,URINE 0-3 /HPF (0-3)
--- NOTE | 2019-05-08 18:12 | NUR ---
Patient discharged to home in stable conditon. Written and verbal after care instructions given. Patient verbalizes understanding of instructions.
== END 2019-05-08 18:14 | disposition home or self-care (01) ==
LOC: ER 17:20
DX: R10.30 Lower abdominal pain, unspecified (principal); R30.0 Dysuria; Z79.1 Long term (current) use of non-steroidal anti-inflammatories (NSAID)
CPT/HCPCS: 84703; 87086; A4663

== ENCOUNTER 2019-05-30 17:17 | Emergency (ER) | payer SELFPAY ==
[~2019-05-30] VITALS: Ht 177.8 cm; Wt 63.5 kg
[2019-05-30] MEDS ORDERED: CEFTRIAXONE 500 MG VIAL IM ONE (17:30)
[2019-05-30] MEDS ORDERED: AZITHROMYCIN 250 MG TABLET PO ONE (17:30)
[2019-05-30] MEDS ORDERED: LIDOCAINE HCL 1% 20 ML VIAL ONE (17:33)
[2019-05-30] MEDS ORDERED: AZITHROMYCIN 250 MG TABLET ONE (17:33)
[2019-05-30] MEDS ORDERED: CEFTRIAXONE 500 MG VIAL ONE (17:33)
[2019-05-30 17:40] LABS: *URINE HCG, QUAL NEGATIVE (NEGATIVE)
--- NOTE | 2019-05-30 17:50 | NUR ---
Patient discharged to home in stable conditon. Written and verbal after care instructions given. Patient verbalizes understanding of instructions.
== END 2019-05-30 17:52 | disposition home or self-care (01) ==
LOC: ER 17:21 → EDBD 17:21 → ER 17:52
DX: N89.8 Other specified noninflammatory disorders of vagina (principal); R10.2 Pelvic and perineal pain; Z86.19 Personal history of other infectious and parasitic diseases; Z82.49 Family history of ischemic heart disease and other diseases of the circulatory system
CPT/HCPCS: 99283; 84703; 96372; J0696; J3490; A4663; Q0144

== ENCOUNTER 2019-07-13 19:06 | Emergency (ER) | payer SELFPAY ==
[~2019-07-13] VITALS: Ht 175.3 cm; Wt 61.2 kg
[2019-07-13] MEDS ORDERED: ACET-2605 PO (19:28)
--- NOTE | 2019-07-13 19:30 | NUR ---
PATIENT WAS MSE BY DR STARKEY IN ROOM 05A. PATIENT A & O X4
[2019-07-13 19:47] LABS: *BILIRUBIN,URIN NEGATIVE (NEGATIVE); *BLOOD, URINE NEGATIVE (NEGATIVE); *COLOR,URINE YELLOW (YELLOW); *KETONES,URINE NEGATIVE (NEGATIVE); *UROBILINOGEN,URINE 0.2 E.U./dl (NORMAL); LEUKOCYTE ESTERASE ,URINE 1+ (NEGATIVE); NITRITE, URINE NEGATIVE (NEGATIVE); UGLUCOSE NEGATIVE (NEGATIVE)
[2019-07-13 19:52] LABS: *CLARITY,URINE HAZY (CLEAR)
[2019-07-13 19:53] LABS: BACTERIA,URINE FEW /HPF (NONE SEEN); MUCUS,URINE MANY /LPF (0-FEW); SQUAMOUS EPITHELIAL CELL,UR MODERATE /HPF (NONE SEEN)
--- NOTE | 2019-07-13 20:18 | NUR ---
Patient discharged to home in stable condition. Written and verbal after care instructions given. Patient verbalizes understanding of instructions. Stressed follow up or return to ER for worsening s/s.
[2019-07-13 20:23] VITALS: BP 102/75
== END 2019-07-13 20:26 | disposition home or self-care (01) ==
LOC: ER 19:07
DX: N76.0 Acute vaginitis (principal); B96.89 Other specified bacterial agents as the cause of diseases classified elsewhere; B37.3 Candidiasis of vulva and vagina
CPT/HCPCS: 87086; A4663

== ENCOUNTER 2019-10-25 17:59 | Emergency (ER) | payer SELFPAY ==
[~2019-10-25] VITALS: Ht 175.3 cm; Wt 56.7 kg
[~2019-10-25 17:59] MED LIST changes: +ACET-2605 PO
--- NOTE | 2019-10-25 18:26 | NUR ---
Pt is in room #2a. dr Garcia evaluated the pt.
[2019-10-25 19:26] LABS: *BILIRUBIN,URIN NEGATIVE (NEGATIVE); *BLOOD, URINE 2+ (NEGATIVE); *CLARITY,URINE CLEAR (CLEAR); *COLOR,URINE YELLOW (YELLOW); *KETONES,URINE NEGATIVE (NEGATIVE); *UROBILINOGEN,URINE 0.2 E.U./dl (NORMAL); LEUKOCYTE ESTERASE ,URINE TRACE (NEGATIVE); NITRITE, URINE NEGATIVE (NEGATIVE); UGLUCOSE NEGATIVE (NEGATIVE)
[2019-10-25 19:40] LABS: *URINE HCG, QUAL NEGATIVE (NEGATIVE)
[2019-10-25 19:43] LABS: BACTERIA,URINE NONE SEEN /HPF (NONE SEEN)
[2019-10-25 19:44] LABS: SQUAMOUS EPITHELIAL CELL,UR MODERATE /HPF (NONE SEEN)
--- NOTE | 2019-10-25 19:50 | NUR ---
pt was d/c'D to home. d/c instructions given to the pt.
[2019-10-25 19:51] VITALS: BP 129/81
== END 2019-10-25 19:52 | disposition home or self-care (01) ==
LOC: ER 18:02
DX: Z13.9 Encounter for screening, unspecified (principal); Z82.49 Family history of ischemic heart disease and other diseases of the circulatory system; G89.29 Other chronic pain; R10.2 Pelvic and perineal pain
CPT/HCPCS: 84703

== ENCOUNTER 2020-03-19 17:15 | Emergency (ER) | payer SELFPAY ==
[~2020-03-19] VITALS: Ht 175.3 cm; Wt 56.7 kg
--- NOTE | 2020-03-19 17:34 | NUR ---
Pt out of ER for x ray.
--- NOTE | 2020-03-19 17:55 | NUR ---
Pt back from xray, sitting in the chair.
[2020-03-19 18:19] VITALS: BP 128/77
== END 2020-03-19 18:22 | disposition home or self-care (01) ==
LOC: ER 17:15
DX: S52.592A Other fractures of lower end of left radius, initial encounter for closed fracture (principal); S33.5XXA Sprain of ligaments of lumbar spine, initial encounter; S23.3XXA Sprain of ligaments of thoracic spine, initial encounter; V43.62XA Car passenger injured in collision with other type car in traffic accident, initial encounter; Y92.410 Unspecified street and highway as the place of occurrence of the external cause; Z82.49 Family history of ischemic heart disease and other diseases of the circulatory system
CPT/HCPCS: 72072; 72100; 73090; 73110; A4663

== ENCOUNTER 2020-05-07 19:23 | Emergency (ER) | payer SELFPAY ==
[~2020-05-07] VITALS: Ht 175.3 cm; Wt 56.7 kg
--- NOTE | 2020-05-07 20:22 | NUR ---
CHAPERONED MD WITH EXAMINATION. PT TOLERATD WELL.
[2020-05-07] MEDS ORDERED: SULF1TAB48 PO (20:25)
[2020-05-07] MEDS ORDERED: SULFAMETH/TRIMETH 800/160 MG TABLET PO ONE (20:30)
[2020-05-07] MEDS ORDERED: ACETAMINOPHEN 325 MG TABLET PO ONE (20:45)
[2020-05-07] MEDS ORDERED: ACETAMINOPHEN 325 MG TABLET ONE (20:49)
[2020-05-07 20:50] VITALS: BP 110/68
[2020-05-07] MEDS ORDERED: SULFAMETH/TRIMETH 800/160 MG TABLET ONE (20:50)
--- NOTE | 2020-05-07 20:50 | NUR ---
ALL MEDS GIVEN and NOTES done by Dev Abreu, zeina FUNEZ
--- NOTE | 2020-05-07 20:50 | NUR ---
Patient discharged to home in stable condition. Written and verbal after care instructions given. Patient verbalizes understanding of instructions. Stressed follow up or return to ER for worsening s/s. Patient ambulates with steady gait, received Rx, and left with all personal belongings.
== END 2020-05-07 20:50 | disposition other institution (70) ==
LOC: ER 19:23
DX: R22.9 Localized swelling, mass and lump, unspecified (principal); N63.14 Unspecified lump in the right breast, lower inner quadrant; Z82.49 Family history of ischemic heart disease and other diseases of the circulatory system; G89.29 Other chronic pain; R10.2 Pelvic and perineal pain
CPT/HCPCS: A4663

== ENCOUNTER 2020-05-11 18:10 | Emergency (ER) | payer SELFPAY ==
[~2020-05-11] VITALS: Ht 175.3 cm; Wt 56.7 kg
[~2020-05-11 18:10] MED LIST changes: +SULF1TAB48 PO
[2020-05-11 21:55] VITALS: BP 120/72
== END 2020-05-11 19:30 | disposition home or self-care (01) ==
LOC: ER 18:10
DX: N63.14 Unspecified lump in the right breast, lower inner quadrant (principal); R22.9 Localized swelling, mass and lump, unspecified; Z82.49 Family history of ischemic heart disease and other diseases of the circulatory system
CPT/HCPCS: A4663

== ENCOUNTER 2022-02-09 18:29 | Emergency (ER) | payer OTHER ==
[~2022-02-09] VITALS: Ht 175.3 cm; Wt 56.7 kg
--- NOTE | 2022-02-09 19:00 | NUR ---
Juan Carlos fitzgerald in [facility] - 02/09/22 at 1908 by RENATO dolly swab sent to lab
--- NOTE | 2022-02-09 19:00 | NUR ---
dr meza at bedside for eval. patient refused covid test. hand off report given to jennifer SMITH
[2022-02-09] MEDS ORDERED: D-ME473S63 PO (19:42)
--- NOTE | 2022-02-09 19:59 | NUR ---
PATIENT SITTING UP IN CHAIR AT [facility], ACI GIVEN WITH RX, STATES UNDERSTANDING AND REMAINS STABLE FOR DISCHARGE HOME.
== END 2022-02-09 20:04 | disposition home or self-care (01) ==
LOC: ER 18:29
DX: J20.9 Acute bronchitis, unspecified (principal)
CPT/HCPCS: 71045; A4663